=== PATIENT | female | born 1940 | race Caucasian/White ===

== ENCOUNTER 2017-07-23 15:01 | Outpatient (CLI) | payer MEDICARE ==
--- NOTE | 2017-07-24 09:12 | XRAY Report ---
THREE VIEW LEFT ANKLE: 07/23/2017 CLINICAL INDICATION: Pain. FINDINGS: AP, lateral, oblique views of the left ankle demonstrate no evidence of fracture or dislocation. The joint spaces are preserved. No effusion is present. IMPRESSION: NORMAL LEFT ANKLE. TD: 07/24/2017 08:53
--- NOTE | 2017-07-24 09:13 | XRAY Report ---
THREE VIEW LEFT FOOT: 07/23/2017 CLINICAL INDICATION: Pain. FINDINGS: AP, lateral, oblique views of the left foot demonstrate no evidence of fracture or dislocation. The joint spaces are preserved. No radiopaque foreign body is seen in the soft tissues. IMPRESSION: NORMAL LEFT FOOT. TD: 07/24/2017 08:54
== END 2017-07-23 15:02 | disposition home or self-care (01) ==
LOC: DI 15:01
PROVIDERS: ATTEND Nurse Practitioner Family
DX: M25.572 Pain in left ankle and joints of left foot (principal); M79.672 Pain in left foot

== ENCOUNTER 2017-10-29 11:14 | Outpatient (CLI) | payer MEDICARE ==
--- NOTE | 2017-10-29 14:54 | XRAY Report ---
Reason: LOW BACK PAIN, LEFT HIP PAIN Procedure Date: 10/29/2017 Accession Number: [id number] / [id number] Procedure: XR - Lumbar Spine 2 View CPT Code: FULL RESULT: EXAM: LUMBOSACRAL SPINE RADIOGRAPHY EXAM DATE: 10/29/2017 11:50 AM. CLINICAL HISTORY: Chronic low back pain with symptoms worsening over the last 10 days. COMPARISONS: None. TECHNIQUE: 3 views. FINDINGS: Alignment: Normal. No spondylolisthesis or scoliosis. Bones: Five ybn-[id number]-[id number] lumbar vertebral bodies are present with partial sacralization of L5. No fractures or bone lesions. Disks: Normal. Disk heights are maintained. Facets: Moderate facet arthropathy at L3 through L5. Sacroiliac Joints: Unremarkable. Soft Tissues: Abdominal aortic calcifications. IMPRESSION: Degenerative changes predominantly in the facet joints as described. RADIA
--- NOTE | 2017-10-29 14:54 | XRAY Report ---
Reason: LOW BACK PAIN, LEFT HIP PAIN Procedure Date: 10/29/2017 Accession Number: [id number] / [id number] Procedure: XR - Hip w/Pelvis 2-3V LT CPT Code: FULL RESULT: EXAM: LEFT HIP AND PELVIS RADIOGRAPHY EXAM DATE: 10/29/2017 11:50 AM. HISTORY: Chronic low back and left hip pain with symptoms worsening the last 10 days. COMPARISONS: None. TECHNIQUE: 1 view of the pelvis and 1 view of the hip. FINDINGS: Bones: Normal. No fracture or bone lesion. Joints: The pubis symphysis, and sacroiliac joints are preserved. There is mild narrowing of the bilateral femoroacetabular joint spaces. Soft Tissues: Normal. No soft tissue swelling. IMPRESSION: Mild narrowing of the femoroacetabular joint spaces. RADIA
== END 2017-10-29 11:15 | disposition home or self-care (01) ==
LOC: DI 11:14
PROVIDERS: ATTEND Nurse Practitioner Family
DX: M47.896 Other spondylosis, lumbar region (principal); M25.852 Other specified joint disorders, left hip; M25.851 Other specified joint disorders, right hip; M25.552 Pain in left hip
CPT/HCPCS: 72100

== ENCOUNTER 2018-05-27 13:26 | Outpatient (CLI) | payer MEDICARE ==
--- NOTE | 2018-05-27 15:08 | XRAY Report ---
Reason: TRAUMATIC ARTHROPATHY,LEFT SHOULDER Procedure Date: 05/27/2018 Accession Number: [id number] / [id number] Procedure: XR - Shoulder 3 View LT CPT Code: FULL RESULT: EXAM: LEFT SHOULDER RADIOGRAPHY EXAM DATE: 05/27/2018 02:05 PM. CLINICAL HISTORY: Traumatic arthropathy, left shoulder. COMPARISON: None. TECHNIQUE: 3 views. FINDINGS: Bones: Healed remote fracture of the surgical neck of the left humerus, post traumatic deformity. Joints: The glenohumeral and acromioclavicular joints are normally aligned with degenerative changes of the AC joint as well as osseous glenoid, predominately along the inferior rim. Soft tissues: The visualized hemithorax is unremarkable. No soft tissue swelling. IMPRESSION: Suspect remote fracture of the surgical neck of the left humerus as well as previous shoulder dislocation. RADIA
== END 2018-05-27 13:27 | disposition home or self-care (01) ==
LOC: DI 13:26
PROVIDERS: ATTEND Internal Medicine
DX: M12.512 Traumatic arthropathy, left shoulder (principal)

== ENCOUNTER 2018-07-04 10:24 | Emergency (ER) | payer MEDICARE ==
[2018-07-04 11:10] LABS: BASOPHILS # (AUTO) 0.1 10^3/uL (0.0-0.1); EOSINOPHILS # (AUTO) 0.3 10^3/uL (0.0-0.7); EOSINOPHILS % (AUTO) 4.5 %; LYMPHOCYTES # (AUTO) 1.8 10^3/uL (1.5-3.5); LYMPHOCYTES % (AUTO) 27.4 %; MEAN CORPUSCULAR HEMOGLOBIN 29.9 pg (27.0-31.0); MEAN CORPUSCULAR HGB CONC 33.3 g/dL (32.0-36.0); MEAN CORPUSCULAR VOLUME 89.8 fL (81.0-99.0); MEAN PLATELET VOLUME 7.7 fL (7.9-10.8); MONOCYTES # (AUTO) 0.5 10^3/uL (0.0-1.0); MONOCYTES % (AUTO) 7.3 %; NEUTROPHILS % (AUTO) 59.8 %; PLT - PLATELET COUNT 302 10^3/uL (130-450); RED BLOOD COUNT 4.68 10^6/uL (4.20-5.40); RED CELL DISTRIBUTION WIDTH 14.9 % (12.0-15.0); WHITE BLOOD COUNT 6.7 x10^3/uL (4.8-10.8)
[2018-07-04 11:28] LABS: ALBUMIN 3.6 g/dL (3.2-5.5); ALBUMIN/GLOBULIN RATIO 1.2 (1.0-2.2); BILIRUBIN,TOTAL 0.7 mg/dL (0.2-1.0); CALCIUM 8.8 mg/dL (8.5-10.3); CREATININE 0.8 mg/dL (0.4-1.0); TOTAL PROTEIN 6.6 g/dL (6.7-8.2)
--- NOTE | 2018-07-04 11:40 | XRAY Report ---
Reason: chest pain Procedure Date: 07/04/2018 Accession Number: [id number] / [id number] Procedure: XR - Chest 2 View X-Ray CPT Code: 26857 FULL RESULT: EXAM: CHEST RADIOGRAPHY EXAM DATE: 07/04/2018 11:26 AM. CLINICAL HISTORY: Chest pain COMPARISON: None. TECHNIQUE: 2 views. FINDINGS: Lungs/Pleura: Linear subsegmental atelectasis or scarring left CP angle. No focal opacities evident. No pleural effusion. No pneumothorax. Normal volumes. Mediastinum: Heart and mediastinal contours are unremarkable. Other: Minimal degenerative change in the spine. IMPRESSION: Clear lungs. No acute findings. RADIA
--- NOTE | 2018-07-04 11:43 | ED Physician Documentation ---
PD HPI CHEST PAIN - Stated complaint Stated Complaint: SENT BY DOC - Chief complaint Chief Complaint: Cardiac - History obtained from History obtained from: Patient - History of Present Illness Timing - onset: How many hours ago (7) Timing - onset during: Sleep Timing - duration: Minutes (30) Timing - details: Now resolved Radiation: Jaw, Back, Left upper extremity Similar symptoms before: Has not had sx before - Additional information Additional information: The patient is a 77-year-old female who had an episode of her heart pounding during the night, about 7 hours prior to arrival. She reports associated shooting pain in her left arm and tightness in her jaw, as well as pain in her right mid back. She denies any associated chest pain or tightness. Her symptoms lasted for about 1/2-hour before gradually resolving spontaneously. She had no associated shortness of breath, diaphoresis, nausea or vomiting. Her only symptom currently is a feeling of tiredness. She denies past history of similar symptoms. Review of Systems Constitutional: reports: Fatigue. denies: Fever Ears: denies: Tinnitus/ringing Nose: denies: Congestion Throat: denies: Sore throat Cardiac: reports: Palpitations. denies: Chest pain / pressure Respiratory: denies: Dyspnea, Cough GI: denies: Abdominal Pain, Nausea, Vomiting : denies: Dysuria Skin: denies: Rash Musculoskeletal: reports: Back pain (right mid back) Neurologic: denies: Focal weakness, Numbness, Headache PD PAST MEDICAL HISTORY - Past Medical History Cardiovascular: Hypertension Endocrine/Autoimmune: HyPOthyroidism GI: GERD - Past Surgical History Past Surgical History: Yes - Present Medications Home Medications: Ambulatory Orders Medication Instructions Recorded Confirmed Levothyroxine [Synthroid] 25 mcg PO QDAC 11/20/12 07/04/18 Lisinopril [Prinivil] 20 mg PO DAILY 11/20/12 07/04/18 Omeprazole [PriLOSEC] 20 mg PO DAILY 11/20/12 07/04/18 - Allergies Allergies/Adverse Reactions: Allergies Allergy/AdvReac Type Severity Reaction Status Date / Time Penicillins Allergy anaphylaxis Verified 07/04/18 10:36 Sulfa (Sulfonamide Allergy drowsiness Verified 07/04/18 10:36 Antibiotics) - Social History Does the pt smoke?: No Smoking Status: Never smoker Does the pt drink ETOH?: No Does the pt have substance abuse?: No - Immunizations Immunizations are current?: Yes Immunizations: TDAP >10years/unknown - POLST Patient has POLST: No PD ED PE NORMAL - Vitals Vital signs reviewed: Yes (hypertensive) - General General: Alert and oriented X 3, Well developed/nourished - HEENT HEENT: Atraumatic, EOMI, Moist mucous membranes, Pharynx benign - Neck Neck: Supple, no meningeal sign, No adenopathy, No JVD - Cardiac Cardiac: RRR, No murmur - Respiratory Respiratory: No respiratory distress, Clear bilaterally - Abdomen Abdomen: Soft, Non tender - Back Back: No CVA TTP, No spinal TTP, Other (Mild tenderness to palpation at inferior aspect of right scapula.) - Derm Derm: No rash - Extremities Extremities: No edema, No calf tenderness / cord - Neuro Neuro: Alert and oriented X 3, No motor deficit, No sensory deficit Results - Vitals Vitals: Vital Signs - 24 hr 07/04/18 07/04/18 10:31 10:38 Temperature 36.1 C L Heart Rate 62 61 Respiratory 18 10 L Rate Blood Pressure 189/98 H 172/95 H O2 Saturation 100 100 Oxygen O2 Source Room air - EKG (time done) 10:33 Rate: Rate (enter#) (57) Rhythm: NSR [place]: Normal, LAD (borderline) Intervals: Normal OK QRS: Normal Ischemia: Normal ST segments Computer interpretation: Agree with computer - Labs Labs: Laboratory Tests 07/04/18 07/04/18 07/04/18 11:03 11:03 11:10 WBC 6.7 RBC 4.68 Hgb 14.0 Hct 42.0 MCV 89.8 MCH 29.9 MCHC 33.3 RDW 14.9 Plt Count 302 MPV 7.7 L Neut # (Auto) 4.0 Lymph # (Auto) 1.8 [place] # (Auto) 0.5 Eos # (Auto) 0.3 Baso # (Auto) 0.1 Absolute Nucleated RBC 0.00 Nucleated RBC % 0.0 Sodium 138 Potassium 4.1 Chloride 103 Carbon Dioxide 25 Anion Gap 10.0 BUN 20 Creatinine 0.8 Estimated GFR (MDRD) 69 L Glucose 112 H Calcium 8.8 Total Bilirubin 0.7 AST 22 ALT 22 Alkaline Phosphatase 75 Troponin I < 0.04 Total Protein 6.6 L Albumin 3.6 Globulin 3.0 Albumin/Globulin Ratio 1.2 Lipase 22 - Rads (name of study) Portable CXR Radiology: Prelim report reviewed, EMP read contemporaneously, See rad report (Clear lungs, no acute findings.) PD MEDICAL DECISION MAKING - ED course Complexity details: reviewed old records, reviewed results, re-evaluated patient, considered differential, d/w patient, d/w family ED course: The patient's presentation is most likely associated with lower esophageal inflammation, given her history of gastroesophageal reflux. In addition she has started a new exercise regimen as of 2 days ago, and may have had a spasm causing her pain. Cardiac ischemia was considered, but her EKG and cardiac enzymes are normal. I would expect that several hours after the onset of her pain that troponin would be elevated if she had an acute myocardial infarct. Given her age and her family history it would be prudent to arrange for outpatient cardiac treadmill test, but that does not need to be pursued emergently. I discussed with the patient and her the diagnosis, need for outpatient follow-up, as well as potentially worrisome signs or symptoms that should prompt reevaluation in the emergency department Departure - Departure Disposition: 01 Home, Self Care Clinical Impression: Atypical chest pain Condition: Stable Instructions: ED Chest Pain Atypical Unkn Cause Follow-Up: Jcarlos Ly MD [Physician No Access] - TA LY MD [Primary Care Provider] - Comments: Follow-up with your primary physician within 1 to 2 weeks. Call to schedule appointment. Return to the emergency department if you develop recurrent or increasing chest pain, shortness of breath, or otherwise worsening symptoms.
[2018-07-04 13:26] VITALS: BP 139/118
== END 2018-07-04 12:50 | disposition home or self-care (01) ==
LOC: ED 10:24
DX: R07.89 Other chest pain (principal); R00.2 Palpitations; K21.9 Gastro-esophageal reflux disease without esophagitis; I10 Essential (primary) hypertension; E03.9 Hypothyroidism, unspecified
CPT/HCPCS: 36415; 71046; 80053; 83690; 84484; 85025; 93005; 99283; 99284

== ENCOUNTER 2018-07-15 15:49 | Outpatient (CLI) | payer MEDICARE ==
--- NOTE | 2018-07-15 17:01 | XRAY Report ---
Reason: HYPOTHYROIDISM,PAIN IN THORACIC SPINE, CERVICALGIA Procedure Date: 07/15/2018 Accession Number: [id number] / [id number] Procedure: XR - Thoracic Spine 2 View CPT Code: FULL RESULT: EXAM: THORACIC SPINE RADIOGRAPHY EXAM DATE: 07/15/2018 04:18 PM. CLINICAL HISTORY: Hypothyroidism, pain in thoracic spine, cervicalgia. COMPARISON: CHEST 2 VIEW 07/04/2018 11:00 AM CERVICAL SPINE 2 VIEW 07/15/2018 4:02 PM. TECHNIQUE: 2 views. FINDINGS: Alignment: Normal. No spondylolisthesis or scoliosis. Bones: No fractures or bone lesions. Disks: Normal. Disk heights are maintained. Soft Tissues: Normal. The visualized lungs and cardiomediastinal silhouette are normal. IMPRESSION: Normal thoracic spine radiography. RADIA
--- NOTE | 2018-07-15 17:02 | XRAY Report ---
Reason: CERVICAL PAIN Procedure Date: 07/15/2018 Accession Number: [id number] / [id number] Procedure: XR - Cervical Spine 2 View CPT Code: FULL RESULT: EXAM: CERVICAL SPINE RADIOGRAPHY EXAM DATE: 07/15/2018 04:18 PM. CLINICAL HISTORY: Cervical pain. COMPARISONS: None. TECHNIQUE: 3 views. FINDINGS: Alignment: Normal. No spondylolisthesis or scoliosis. Bones: The cervical vertebral bodies and posterior elements are well visualized from the skull base through C7-T1. No fractures or bone lesions. Disks: Normal. Disk heights are maintained. Facets: No degenerative disease. Soft Tissues: Normal. No prevertebral soft tissue swelling. The visualized lung apices are clear. IMPRESSION: Normal cervical spine radiography. RADIA
--- NOTE | 2018-07-15 17:02 | Ultrasound Report ---
Reason: HYPOTHYROIDISM,PAIN IN THORACIC SPINE, CERVICALGIA Procedure Date: 07/15/2018 Accession Number: [id number] / [id number] Procedure: US - Head or Neck Soft Tissue CPT Code: FULL RESULT: EXAM: THYROID ULTRASOUND EXAM DATE: 07/15/2018 04:37 PM. CLINICAL HISTORY: Hypothyroidism,pain in thoracic spine, cervicalgia. COMPARISON: None. TECHNIQUE: Real time sonographic imaging of the thyroid was performed by the scientific systems analyst. Multiple medical service representative static images were saved for review. FINDINGS: THYROID GLAND: Right Lobe: 1 x 0.3 x 0.4 cm. Heterogeneous/atrophic. Right Lobe Nodules: None. Left Lobe: 1.4 x 0.5 x 0.6 cm. Heterogeneous/atrophic. Left Lobe Nodules: None. Isthmus: 0.16 cm AP. Isthmic Nodules: None. LYMPH NODES: No adenopathy demonstrated in the central or lateral compartment. OTHER: None. IMPRESSION: Significant atrophy of the thyroid parenchyma; no appreciable nodules. Management recommendations are based on 2015 [place] [employer] Management Guidelines for Adult Patients with Thyroid Nodules and Differentiated Thyroid Cancer. RADIA
== END 2018-07-15 15:50 | disposition home or self-care (01) ==
LOC: DI 15:49
PROVIDERS: ATTEND Internal Medicine
DX: E03.9 Hypothyroidism, unspecified (principal); E03.4 Atrophy of thyroid (acquired); M54.6 Pain in thoracic spine; M54.2 Cervicalgia
CPT/HCPCS: 72040; 72070; 76536

== ENCOUNTER 2018-07-29 14:54 | Outpatient (CLI) | payer MEDICARE ==
--- NOTE | 2018-07-30 12:19 | MRI Report ---
Reason: PAIN IN LEFT SHOULDER Procedure Date: 07/29/2018 Accession Number: [id number] / [id number] Procedure: MRI - Shoulder LT W/O CPT Code: FULL RESULT: EXAM: LEFT SHOULDER MRI WITHOUT CONTRAST EXAM DATE: 07/29/2018 03:11 PM. CLINICAL HISTORY: Left shoulder pain. Tripped by a dog several months ago. Left arm numbness. COMPARISON: 05/27/2018 radiograph. TECHNIQUE: Multiplanar, multisequence T1-weighted and fluid-sensitive sequences of the shoulder without contrast. Other: None. FINDINGS: Acromioclavicular Region: The acromion is type I. The acromioclavicular joint is unremarkable. The coracoacromial and coracoclavicular ligaments are intact. A minimal amount of fluid is in the subacromial/subdeltoid bursa. Glenohumeral Region: No subluxation. No effusion or loose bodies. The articular cartilage of the inferior glenohumeral joint is moderately to severely thinned. Trace osteophyte formation is present. The glenohumeral ligaments and joint capsule are unremarkable. Bone Marrow: No acute fractures. The patient has had a transverse fracture of the surgical neck of the humerus and that fracture has healed. Periarticular cyst formation is in the glenoid. Labrum: The labrum is unremarkable on this nonarthrographic study. Musculature/Rotator Cuff: The subscapularis, supraspinatus, infraspinatus, and teres minor tendons are intact. No muscle edema. There is mild fatty atrophy of the subscapularis muscle. Biceps Tendon: The long head of the biceps tendon and biceps lisa are intact. Other: The subcutaneous tissues are unremarkable. IMPRESSION: 1. Minimal subacromial/subdeltoid bursitis. 2. Minimal glenohumeral osteoarthritis. 3. Old healed fracture of the proximal humerus. RADIA
== END 2018-07-29 14:55 | disposition home or self-care (01) ==
LOC: DI 14:54
PROVIDERS: ATTEND Orthopaedic Surgery Sports Medicine
DX: M75.52 Bursitis of left shoulder (principal); M19.012 Primary osteoarthritis, left shoulder

== ENCOUNTER 2018-08-26 14:00 | Outpatient (CLI) | payer MEDICARE ==
--- NOTE | 2018-08-26 15:15 | XRAY Report ---
Reason: PAIN IN LEFT SHOULDER,PLEURODYNIA Procedure Date: 08/26/2018 Accession Number: [id number] / [id number] Procedure: XR - Ribs w/PA Chest LT CPT Code: FULL RESULT: EXAM: LEFT RIB RADIOGRAPHY EXAM DATE: 08/26/2018 02:37 PM. CLINICAL HISTORY: Pain in left shoulder, pleurodynia. COMPARISON: THORACIC SPINE 2 VIEW 07/15/2018 4:02 PM. TECHNIQUE: 1 view of the chest and 2 views of the ribs. FINDINGS: Bones: The bones are qualitatively osteopenic; this limits evaluation for underlying fractures or masses. No definite displaced fracture is seen. Lungs: A small linear opacity is seen at the lateral left lung base, atelectasis versus scarring suspected. No sizable pleural effusion or pneumothorax. Mediastinum: Heart and mediastinal contours are unremarkable. Other: None. IMPRESSION: No definite displaced rib fracture is detected. RADIA
--- NOTE | 2018-08-26 15:20 | XRAY Report ---
Reason: PAIN IN LEFT SHOULDER,PLEURODYNIA Procedure Date: 08/26/2018 Accession Number: [id number] / [id number] Procedure: XR - Shoulder 3 View LT CPT Code: FULL RESULT: EXAM: LEFT SHOULDER RADIOGRAPHY EXAM DATE: 08/26/2018 02:37 PM. CLINICAL HISTORY: Ground level fall after "flying off treadmill" one week ago. Left shoulder pain. COMPARISON: SHOULDER 3 VIEW LT 05/27/2018 1:52 PM SHOULDER LT W/O 07/29/2018 3:11 PM. TECHNIQUE: 3 views. FINDINGS: Deformity of the head of the left humerus is redemonstrated, unchanged compared to May. The humeral head is anteriorly and inferiorly subluxed with relation to the osseous glenoid. Positioning is similar to May, but osseous irregularity of the inferior glenoid is now more pronounced. The visualized acromioclavicular joint is preserved. Soft tissues: The visualized hemithorax is unremarkable. No soft tissue swelling. IMPRESSION: Partial subluxation of the glenohumeral articulation in the setting of chronic deformity of the humeral head, apparent irregularity of the inferior osseous glenoid. Of note, at the time of the recent MRI, the glenohumeral alignment is preserved and the osseous glenoid is demonstrated to be relatively intact raising question of interval injury. RADIA The call report notification system was initiated by Dr. Destin Dhillon at 03:12 PM on 08/26/2018. The above call report findings were discussed with Jocelyn Jauregui by Dr. Destin Dhillon at 03:15 PM on 08/26/2018.
== END 2018-08-26 14:01 | disposition home or self-care (01) ==
LOC: DI 14:00
PROVIDERS: ATTEND Nurse Practitioner Family
DX: S43.012A Anterior subluxation of left humerus, initial encounter (principal); M21.822 Other specified acquired deformities of left upper arm; R07.81 Pleurodynia

== ENCOUNTER 2019-10-31 08:00 | Outpatient (CLI) | payer MEDICARE ==
--- NOTE | 2019-10-31 13:08 | XRAY Report ---
PROCEDURE: Chest 2 View X-Ray INDICATIONS: CHEST PAIN, RIGHT TECHNIQUE: 2 view(s) of the chest. COMPARISON: 08/26/2018. FINDINGS: Surgical changes and devices: None. Lungs and pleura: No pleural effusions or pneumothorax. Minimal left basilar atelectasis versus scar ring. Lungs are otherwise clear. Mediastinum: Mediastinal contours are normal. Heart size is normal. Bones and chest wall: No suspicious bony abnormalities. Soft tissues appear unremarkable. IMPRESSION: Chest without acute cardiopulmonary abnormalities. No definite rib fractures visualized. Consider dedicated rib series if there is persistent clinical concern. Reviewed by: Terell Dan MD on 10/31/2019 1:07 PM PDT Approved by: Terell Dan MD on 10/31/2019 1:07 PM PDT Station ID: [id number]
--- NOTE | 2019-10-31 13:10 | XRAY Report ---
PROCEDURE: Shoulder 2 View RT INDICATIONS: PAIN IN RIGHT SHOULDER TECHNIQUE: 3 views of the shoulder were acquired. COMPARISON: None. FINDINGS: Bones: No fractures or dislocations. Mild degenerative changes of the right acromioclavicular joint . No suspicious bony lesions. Visualized ribs appear intact. Soft tissues: No suspicious soft tissue calcifications. IMPRESSION: Right shoulder without acute fracture or dislocation. Mild right acromioclavicular osteoarthrosis. Reviewed by: Terell Dan MD on 10/31/2019 1:08 PM PDT Approved by: Terell Dan MD on 10/31/2019 1:08 PM PDT Station ID: [id number]
== END 2019-10-31 23:59 | disposition home or self-care (01) ==
LOC: DI.S 08:00
PROVIDERS: ATTEND Physician Assistant
DX: R07.89 Other chest pain (principal); M25.511 Pain in right shoulder
CPT/HCPCS: 71046

== ENCOUNTER 2019-10-31 13:30 | Emergency (ER) | payer MEDICARE ==
[2019-10-31 13:46] VITALS: BP 154/76
[2019-10-31] MEDS ORDERED: traMADol 50 MG TABLET PO STA (13:55)
--- NOTE | 2019-10-31 13:59 | ED Physician Documentation ---
History of Present Illness - Stated complaint Stated Complaint: GLF -RT SIDE PX - Chief complaint Chief Complaint: Trauma Ch/Bk - History obtained from History obtained from: Patient - History of Present Illness Timing: How many days ago (4) Pain level max: 6 Pain level now: 5 - Additonal information Additional information: 79-year-old female presents the emergency department after a ground-level fall on her concrete driveway 4 days ago. She complains of increasing pain over the right anterior ribs. Worse with movement, better with rest. No abdominal pain. No nausea or vomiting. No neck or back pain. No head injury. Does not take any blood thinners. States feels similar to her prior cracked rib. She was seen at the walk-in clinic this morning, they performed a chest x-ray and a shoulder x-ray which were normal. A rib series was recommended if concern for rib fractures. Apparently the provider at the walk-in clinic was concerned for a potential liver injury and sent the patient to the emergency department for further evaluation. Review of Systems Constitutional: denies: Fever, Chills Respiratory: denies: Cough GI: denies: Vomiting, Diarrhea Skin: denies: Rash Musculoskeletal: denies: Neck pain, Back pain Neurologic: denies: Headache PD PAST MEDICAL HISTORY - Past Medical History Past Medical History: Yes Cardiovascular: Hypertension Endocrine/Autoimmune: HyPOthyroidism GI: GERD - Past Surgical History Past Surgical History: Yes - Present Medications Home Medications: Ambulatory Orders Medication Instructions Recorded Confirmed Levothyroxine [Synthroid] 25 mcg PO QDAC 11/20/12 07/04/18 Lisinopril [Prinivil] 20 mg PO DAILY 11/20/12 07/04/18 Omeprazole [PriLOSEC] 20 mg PO DAILY 11/20/12 07/04/18 Tramadol HCl 50 mg PO Q6HR PRN #14 tablet 10/31/19 - Allergies Allergies/Adverse Reactions: Allergies Allergy/AdvReac Type Severity Reaction Status Date / Time Penicillins Allergy anaphylaxis Verified 10/31/19 13:45 Sulfa (Sulfonamide Allergy drowsiness Verified 10/31/19 13:45 Antibiotics) - Social History Does the pt smoke?: No Smoking Status: Never smoker Does the pt drink ETOH?: No Does the pt have substance abuse?: No - Immunizations Immunizations are current?: Yes Immunizations: TDAP >10years/unknown - POLST Patient has POLST: No PD ED PE NORMAL - Vitals Vital signs reviewed: Yes - General General: Alert and oriented X 3, No acute distress, Well developed/nourished - HEENT HEENT: Atraumatic, PERRL, EOMI, Moist mucous membranes - Neck Neck: Supple, no meningeal sign, No bony TTP (No step-off or deformity. No tenderness. Full range of motion without pain) - Cardiac Cardiac: RRR - Respiratory Respiratory: No respiratory distress, Clear bilaterally - Abdomen Abdomen: Soft, Non tender, Non distended, Other (No peritoneal signs. Nontender abdomen. Benign exam) - Back Back: No spinal TTP (No step-off or deformity.) - Derm Derm: Warm and dry - Extremities Extremities: No deformity, No tenderness to palpate, Normal ROM s pain, No edema, Other (No tenderness over the shoulders, full range of motion, mild pain with range of motion of the right shoulder. Neurovascular intact.) - Neuro Neuro: Alert and oriented X 3 - Psych Psych: Normal mood, Normal affect - Free text exam Free text exam: Tender to palpation over the right anterior ribs, approximately 7 and 8. No crepitus. No ecchymosis. Anterior axillary line. Otherwise normal examination of the rib cage Results - Vitals Vitals: Vital Signs - 24 hr 10/31/19 13:40 Temperature 36.4 C L Heart Rate 66 Respiratory 18 Rate Blood Pressure 154/76 H O2 Saturation 100 Oxygen O2 Source Room air - Rads (name of study) rib x-ray Radiology: Prelim report reviewed, EMP read contemporaneously, See rad report (Acute right rib fracture, 11th rib. Otherwise normal x-ray) PD MEDICAL DECISION MAKING - ED course Complexity details: reviewed results, re-evaluated patient, considered differential, d/w patient ED course: Patient with a right rib fracture. Will place on pain medication for home. She states that tramadol normally works well for her. Patient is well-appearing, nontoxic. Afebrile. No hemo-or pneumothorax. Patient counseled regarding signs and symptoms for which I believe and urgent re-evaluation would be necessary. Patient with good understanding of and agreement to plan and is comfortable going home at this time This document was made in part using voice recognition software. While efforts are made to proofread this document, sound alike and grammatical errors may occur. No abdominal tenderness or tenderness over the liver to suggest intra-abdominal injury. Departure - Departure Disposition: 01 Home, Self Care Clinical Impression: Fracture, rib Qualifiers: Encounter type: initial encounter Rib fracture type: single rib Fracture type: closed Laterality: right Qualified Code(s): S22.31XA - Fracture of one rib, right side, initial encounter for closed fracture Condition: Good Instructions: ED Fx Rib Follow-Up: NEAL RICHMOND ARNP [Primary Care Provider] - Within 1 week Prescriptions: Tramadol HCl 50 mg PO Q6HR PRN #14 tablet PRN Reason: rib pain Comments: You do have a right 11th rib fracture. This will heal on its own. You can use the tramadol as needed for pain. Do not drink alcohol or drive while on narcotic pain medicine. Note that many narcotic pain relievers also contain tylenol/acetaminophen. Please ensure that your total dose of acetaminophen from all sources does not exceed 3 grams (3000mg) per day. You may constipated on this medication, take a stool softener such as "Colace" twice a day while you are on it. Also recommend a [id number]-[id number] laxative such as senna or MiraLAX any day that you do not have a bowel movement. If you received narcotic pain medication in the emergency department, do not drive or operate machinery for the next 24 hours. Discharge Date/Time: 10/31/19 15:25
--- NOTE | 2019-10-31 15:05 | XRAY Report ---
PROCEDURE: Ribs 2 View RT INDICATIONS: RT RIB PAIN AFTER FALL TECHNIQUE: 3 views of the right ribs were acquired. COMPARISON: Chest radiograph from earlier same day FINDINGS: Surgical changes and devices: None. Bones and chest wall: Acute, mildly displaced lateral right 11th rib fracture. No suspicious bony le sions. Overlying soft tissues appear unremarkable. Lungs and pleura: The visualized lung appears clear. No pleural effusions or pneumothorax are visib le. IMPRESSION: Acute, mildly displaced lateral right 11th rib fracture. No pneumothorax visualized. Reviewed by: Terell Dan MD on 10/31/2019 3:04 PM PDT Approved by: Terell Dan MD on 10/31/2019 3:04 PM PDT Station ID: [id number]
== END 2019-10-31 15:25 | disposition home or self-care (01) ==
LOC: ED 13:30
DX: I10 Essential (primary) hypertension (principal); S22.31XA Fracture of one rib, right side, initial encounter for closed fracture; W01.198A Fall on same level from slipping, tripping and stumbling with subsequent striking against other object, initial encounter; Y92.008 Other place in unspecified non-institutional (private) residence as the place of occurrence of the external cause; R07.89 Other chest pain; M25.511 Pain in right shoulder
CPT/HCPCS: 71046; 71100; 73030; 99283; 99284; A9270

== ENCOUNTER 2020-06-25 08:00 | Outpatient (CLI) | payer MEDICARE ==
--- NOTE | 2020-06-25 14:33 | XRAY Report ---
PROCEDURE: Knee 3 View RT INDICATIONS: RIGHT KNEE PAIN TECHNIQUE: 3 views of the right knee(s) were acquired. COMPARISON: None. FINDINGS: Bones: No fractures or dislocations. Mild degenerative change. No suspicious bony lesions. Soft tissues: No joint effusion. No suspicious soft tissue calcifications. IMPRESSION: Mild degenerative arthritis. No evidence acute bony abnormality of the right knee. Reviewed by: David Rodríguez MD on 06/25/2020 2:32 PM PDT Approved by: David Rodríguez MD on 06/25/2020 2:32 PM PDT Station ID: [id number]
== END 2020-06-25 23:59 | disposition home or self-care (01) ==
LOC: DI.S 08:00
PROVIDERS: ATTEND Physician Assistant Medical
DX: M17.11 Unilateral primary osteoarthritis, right knee (principal)

== ENCOUNTER 2020-11-10 12:15 | Outpatient (CLI) | payer MEDICARE ==
--- NOTE | 2020-11-10 13:48 | XRAY Report ---
PROCEDURE: Knee 3 View RT INDICATIONS: PAIN IN RIGHT KNEE TECHNIQUE: 3 views of the right knee(s) were acquired. COMPARISON: None. FINDINGS: Bones: No fractures or dislocations. No suspicious bony lesions. Mild to moderate tricompartmental osteoarthritis is seen more prominent in medial femoral tibial compartment. Soft tissues: No joint effusion. No suspicious soft tissue calcifications. IMPRESSION: Mild to moderate tricompartmental osteoarthritis more prominent in medial femoral tibial compartment. No fracture or dislocation. No significant joint effusion. Reviewed by: Abel Aaron MD on 11/10/2020 1:47 PM PDT Approved by: Abel Aaron MD on 11/10/2020 1:47 PM PDT Station ID: [id number]
== END 2020-11-10 12:16 | disposition home or self-care (01) ==
LOC: DI.S 12:15
PROVIDERS: ATTEND Nurse Practitioner Family
DX: M17.11 Unilateral primary osteoarthritis, right knee (principal)

== ENCOUNTER 2020-12-25 08:00 | Outpatient (CLI) | payer MEDICARE ==
--- NOTE | 2020-12-25 15:26 | XRAY Report ---
PROCEDURE: Lumbar Spine 2 View INDICATIONS: LUMBAR BACK PAIN TECHNIQUE: 3 views of the lumbar spine were acquired. COMPARISON: 10/21/2017 FINDINGS: Bones: This patient has transitional anatomy. For the purposes of this examination, the level with t iny vestigial ribs is considered to be T12. By this summary scheme, the L5 level is transitional and highly sacralized. There is a transitional, rudimentary disc seen at the S1-S2 level. This imaging sc heme is chosen to remain consistent with the prior report. There is minimal grade 1 anterolisthesis seen at L5-S1. Moderate disc space narrowing is seen at L5-S 1. Facet arthropathy is seen, which is most prominent inferiorly. No fractures or dislocations can be seen. No suspicious lytic or blastic lesions are seen. Soft tissues: Overlying bowel gas pattern is normal. No suspicious soft tissue calcifications. Ath erosclerotic calcification is seen. IMPRESSION: Focal L5-S1 degenerative change is seen, which has progressed compared to 2018. 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 Reviewed by: Clark Figuerao MD on 12/25/2020 2:25 PM [facility] Approved by: Clark Figueroa MD on 12/25/2020 2:25 PM [facility] Station ID: [id number]
== END 2020-12-25 23:59 | disposition home or self-care (01) ==
LOC: DI.S 08:00
PROVIDERS: ATTEND Family Medicine
DX: M47.817 Spondylosis without myelopathy or radiculopathy, lumbosacral region (principal)

== ENCOUNTER 2021-06-12 18:36 | Outpatient (CLI) | payer MEDICARE ==
--- NOTE | 2021-06-14 11:22 | Ultrasound Report ---
PROCEDURE: Retroperitoneal INDICATIONS: CHRONIC KIDENY DISEASE TECHNIQUE: Real-time scanning was performed of the retroperitoneal organs, with image documentation. COMPARISON: CT abdomen and pelvis, 03/28/2009. Ultrasound pelvis, 03/28/2009. FINDINGS: Kidneys: Kidneys are normal in size. Right kidney measures 9.1 cm long; left kidney measures 9.6 cm long. Right renal cortical thickness is 1.1 cm; left renal cortical thickness is 1.4 cm. There is moderate left hydronephrosis. No right hydronephrosis. Suspect a sub 5 mm cyst in the superior pole r ight kidney. No solid masses, hydronephrosis, or nephrolithiasis. Bladder: Pre-void bladder volume is 293 mL. Post-void residual is 9.6 mL. Pre-void images demonstr ate no intraluminal masses or stones. On pre-void images, right ureteral jet is noted with color Dop pler interrogation. (Of note, ureteral jets may not be detectable in up to 25% of cases due to insuf ficient differences in specific gravity between ureteral and bladder urine). Miscellaneous: No free abdominal fluid. There is a large multilocular cystic mass in the right adne xa. IMPRESSION: 1. Moderate left hydronephrosis is present. A obstructive stone or mass is not identified. Recommend CT IVP for follow-up evaluation. 2. There is a large multilocular cystic mass in the right adnexa. Differential diagnoses include ami gn versus malignant cystic ovarian neoplasms. Recommend pelvic ultrasound for follow-up evaluation. Reviewed by: Jaden Contreras MD on 06/14/2021 11:21 AM PDT Approved by: Jaden Contreras MD on 06/14/2021 11:21 AM PDT Station ID: [id number]
== END 2021-06-12 18:37 | disposition home or self-care (01) ==
LOC: DI 18:36
PROVIDERS: ATTEND Nurse Practitioner Family
DX: N13.30 Unspecified hydronephrosis (principal); N94.89 Other specified conditions associated with female genital organs and menstrual cycle; N18.9 Chronic kidney disease, unspecified

== ENCOUNTER 2021-06-21 09:36 | Outpatient (CLI) | payer MEDICARE | END 2021-06-21 09:37 | disposition short-term general hospital (02) | LOC: EMS 09:36 | DX: R41.0 Disorientation, unspecified (principal); R45.1 Restlessness and agitation | CPT/HCPCS: A0425; A0429 ==

== ENCOUNTER 2021-08-02 10:52 | Outpatient (CLI) | payer MEDICARE ==
--- NOTE | 2021-08-02 15:02 | Ultrasound Report ---
PROCEDURE: Pelvic w/Transvaginal INDICATIONS: MASS OF RIGHT OVARY TECHNIQUE: Real-time scanning was performed of the pelvic organs, with image documentation. Additional endovagi nal scanning was necessary due to incomplete visualization of the adnexal and endometrial structures by transabdominal scanning. COMPARISON: Renal ultrasound 06/12/2021.. FINDINGS: Limited scanning through the kidneys shows no hydronephrosis. No pathologic free abdominal or pelvic fluid. Uterus: Uterus is normal in size at 6.8 x 2.9 x 3.6 cm. The endometrium measures 1.8 mm in combined thickness. There is a 1.5 x 1.2 x 1.4 cm calcified intramural fibroid in the left mid uterus. Ovaries: Right ovary measures 9.2 x 8.5 x 9.5 cm with total volume of 390.5 cc. Right ovary is compl etely replaced by a large mixed cystic/solid multiseptated mass. Echogenic debris is noted within the cystic pontine of the right ovarian mass. Left ovary measures 2.2 x 1.5 x 1.3 cm the total volume of 2.3 cc. Left ovary is sonographically normal. Other: No free pelvic fluid. IMPRESSION: 9.2 x 8.5 x 9.5 cm complex cystic-solid right ovarian mass highly suspicious for neoplastic process. Recommend gynecologic consultation and MRI of the pelvis with and without contrast for additional alex luation. Reviewed by: Phuong Sanders MD, PhD on 08/02/2021 3:00 PM PDT Approved by: Phuong Sanders MD, PhD on 08/02/2021 3:00 PM PDT Station ID: [id number]
== END 2021-08-02 10:53 | disposition home or self-care (01) ==
LOC: DI 10:52
PROVIDERS: ATTEND Nurse Practitioner Family
DX: N83.9 Noninflammatory disorder of ovary, fallopian tube and broad ligament, unspecified (principal)

== ENCOUNTER 2021-08-14 13:47 | Outpatient (CLI) | payer MEDICARE ==
[2021-08-14 20:18] LABS: BASOPHILS # (AUTO) 0.1 10^3/uL (0.0-0.1); BASOPHILS % (AUTO) 0.8 %; EOSINOPHILS # (AUTO) 0.3 10^3/uL (0.0-0.7); EOSINOPHILS % (AUTO) 3.6 %; HCT - HEMATOCRIT 39.4 % (37.0-47.0); HGB - HEMOGLOBIN 12.5 g/dL (12.0-16.0); LYMPHOCYTES # (AUTO) 2.3 10^3/uL (1.5-3.5); LYMPHOCYTES % (AUTO) 26.3 %; MEAN CORPUSCULAR HGB CONC 31.7 g/dL (32.0-36.0); MEAN CORPUSCULAR VOLUME 97.8 fL (81.0-99.0); MEAN PLATELET VOLUME 10.2 fL (7.9-10.8); MONOCYTES # (AUTO) 0.7 10^3/uL (0.0-1.0); MONOCYTES % (AUTO) 7.8 %; NEUTROPHILS # (AUTO) 5.3 10^3/uL (1.5-6.6); NEUTROPHILS % (AUTO) 61.2 %; PLT - PLATELET COUNT 343 10^3/uL (130-450); RED BLOOD COUNT 4.03 10^6/uL (4.20-5.40); RED CELL DISTRIBUTION WIDTH 14.4 % (12.0-15.0); WHITE BLOOD COUNT 8.7 x10^3/uL (4.8-10.8)
[2021-08-14 20:36] LABS: ALBUMIN/GLOBULIN RATIO 1.2 (1.0-2.2); ALKALINE PHOSPHATASE 51 IU/L (42-121); ALT ALANINE AMINOTRANSFERASE 26 IU/L (10-60); AST ASPARTATE AMINOTRANSFERASE 25 IU/L (10-42); BILIRUBIN,TOTAL 0.8 mg/dL (0.2-1.0); BUN - BLOOD UREA NITROGEN 19 mg/dL (6-20); CALCIUM 9.4 mg/dL (8.5-10.3); CARBON DIOXIDE - CO2 26 mmol/L (21-32); CHLORIDE 104 mmol/L (101-111); CHOL/HDL RATIO 5.9 (<4.4); CHOLESTEROL 246 mg/dL; CREATININE 1.1 mg/dL (0.4-1.0); GFR - MDRD 47 (>89); GLUCOSE 97 mg/dL (70-100); HDL CHOLESTEROL 42 mg/dL; LDL CHOLESTEROL,CALCULATED 159 mg/dL; LDL/HDL RATIO 3.8 (<4.4); POTASSIUM 4.4 mmol/L (3.5-5.0); SODIUM 139 mmol/L (135-145); TOTAL PROTEIN 7.3 g/dL (6.7-8.2); TRIGLYCERIDES 226 mg/dL; VLDL CHOLESTEROL 45 mg/dL
== END 2021-08-14 13:48 | disposition home or self-care (01) ==
LOC: LAB.S 13:47
PROVIDERS: ATTEND Nurse Practitioner Family
DX: E78.5 Hyperlipidemia, unspecified (principal); I10 Essential (primary) hypertension
CPT/HCPCS: 36415; 80053; 80061; 83721; 85025

== ENCOUNTER 2021-08-28 13:54 | Outpatient (CLI) | payer MEDICARE ==
[2021-08-28 19:56] LABS: ALBUMIN/GLOBULIN RATIO 1.3 (1.0-2.2); BILIRUBIN,TOTAL 0.6 mg/dL (0.2-1.0); CALCIUM 9.2 mg/dL (8.5-10.3); CREATININE 1.2 mg/dL (0.4-1.0); POTASSIUM 4.3 mmol/L (3.5-5.0); TOTAL PROTEIN 7.1 g/dL (6.7-8.2)
== END 2021-08-28 13:55 | disposition home or self-care (01) ==
LOC: LAB.S 13:54
PROVIDERS: ATTEND Nurse Practitioner Family
DX: N83.291 Other ovarian cyst, right side (principal)
CPT/HCPCS: 36415; 80053

== ENCOUNTER 2023-01-08 19:48 | Outpatient (CLI) | payer MEDICARE | END 2023-01-08 23:59 | disposition short-term general hospital (02) | LOC: EMS 19:48 | DX: I46.9 Cardiac arrest, cause unspecified (principal) | CPT/HCPCS: A0425; A0427 ==

== ENCOUNTER 2023-04-26 13:22 | Outpatient (CLI) | payer MEDICARE ==
--- NOTE | 2023-04-26 15:17 | XRAY Report ---
PROCEDURE: Knee 3V RT INDICATIONS: ACCIDENTAL FALL TECHNIQUE: 3 views of the knee(s) were acquired. COMPARISON: Right knee radiograph on November 10, 2020. FINDINGS: Bones: Right total knee arthroplasty hardware with patellar resurfacing is intact with no perihardwa re lucency to suggest hardware loosening. Anatomic alignment. No fractures or dislocations. No suspi cious bony lesions. Diffuse osseous demineralization. Soft tissues: No knee joint effusion. No suspicious soft tissue calcifications or masses. Vascular calcifications. IMPRESSION: 1.No acute bony abnormality. If there is high clinical suspicion for a radiographically occult fractu re, consider CT for further evaluation. 2.Right total knee arthroplasty hardware is intact without complication. Anatomic alignment. Reviewed by: Tasha Saldaña MD on 04/26/2023 3:16 PM PST Approved by: Tasha Saldaña MD on 04/26/2023 3:16 PM PST Station ID: [id number]
--- NOTE | 2023-04-26 15:18 | XRAY Report ---
PROCEDURE: Shoulder 2+V RT INDICATIONS: ACCIDENTAL FALL TECHNIQUE: 3 views of the shoulder were acquired. COMPARISON: None. FINDINGS: Bones: No fractures or dislocations. Moderate acromioclavicular joint space narrowing and juxta-art icular osteophytosis. Mild glenohumeral joint space narrowing. No suspicious bony lesions. Visualize d ribs appear intact. Diffuse osseous demineralization. Soft tissues: No suspicious soft tissue calcifications. The visualized lungs are within normal limi ts. IMPRESSION: 1.No acute bony abnormality. 2.Mild glenohumeral and moderate acromioclavicular joint osteoarthritis. Reviewed by: Tasha Saldaña MD on 04/26/2023 3:17 PM PST Approved by: Tasha Saldaña MD on 04/26/2023 3:17 PM PST Station ID: [id number]
--- NOTE | 2023-04-26 19:34 | CT Report ---
PROCEDURE: Head WO INDICATIONS: ACCIDENTAL FALL TECHNIQUE: Noncontrast 4.5 mm thick angled axial sections acquired from the foramen magnum to the vertex. For r adiation dose reduction, the following was used: automated exposure control, adjustment of mA and/or kV according to patient size. COMPARISON: None. FINDINGS: Image quality: Excellent. CSF spaces: Basal cisterns are patent. No extra-axial fluid collections. Ventricles are normal in size and shape. Brain: No midline shift. No intracranial masses or hemorrhage. Ibarra-white matter interface is norm al. Skull and face: Calvarium and visualized facial bones are intact, without suspicious lesions. Hyper ostosis frontalis is incidentally noted, which is not frankly abnormal for a female patient of this a ge. Sinuses: Visualized sinuses and mastoids are clear. IMPRESSION: Noncontrast head CT within normal limits for age. Reviewed by: Clark Figueroa MD on 04/26/2023 6:32 PM [facility] Approved by: Clark Figueroa MD on 04/26/2023 6:32 PM [facility] Station ID: [id number]
== END 2023-04-26 13:23 | disposition home or self-care (01) ==
LOC: DI 13:22
PROVIDERS: ATTEND Registered Nurse
DX: M19.011 Primary osteoarthritis, right shoulder (principal); Z96.651 Presence of right artificial knee joint; Z91.81 History of falling

== ENCOUNTER 2023-04-26 13:25 | Outpatient (CLI) | payer MEDICARE ==
--- NOTE | 2023-04-26 15:49 | XRAY Report ---
PROCEDURE: Ribs w/PA Chest 3+V RT INDICATIONS: ACCIDENTAL FALL TECHNIQUE: 2 views of the ribs were acquired, along with a single view chest. COMPARISON: X-ray chest 10/31/2019. FINDINGS: Surgical changes and devices: None. Bones and chest wall: Osteopenia. Scoliosis. Questionable minimally displaced fracture of the lower thoracic rib; evaluation limited due to osteopenia and overlying soft tissues.. Old left humeral neck fracture noted. Lungs and pleura: No pleural effusions or pneumothorax. Lungs appear clear. Mediastinum: Mediastinal contours appear normal. Heart size is normal. IMPRESSION: Questionable nondisplaced fracture of the lateral rib in the region where the marker is placed. Evalu ation is limited due to severe osteopenia overlying soft tissues. Reviewed by: Marcos Mohr MD on 04/26/2023 3:48 PM PST Approved by: Marcos Mohr MD on 04/26/2023 3:48 PM PST Station ID: [id number]
== END 2023-04-26 13:26 | disposition home or self-care (01) ==
LOC: DI 13:25
PROVIDERS: ATTEND Registered Nurse
DX: R93.7 Abnormal findings on diagnostic imaging of other parts of musculoskeletal system (principal); M85.88 Other specified disorders of bone density and structure, other site; M19.011 Primary osteoarthritis, right shoulder; Z96.651 Presence of right artificial knee joint; Z91.81 History of falling

== ENCOUNTER 2023-05-14 15:15 | Outpatient (CLI) | payer MEDICARE | END 2023-05-14 23:59 | disposition short-term general hospital (02) | LOC: EMS 15:15 | DX: R07.89 Other chest pain (principal); M54.6 Pain in thoracic spine; R00.1 Bradycardia, unspecified | CPT/HCPCS: A0425; A0427 ==

== ENCOUNTER 2023-08-24 14:52 | Outpatient (CLI) | payer MEDICARE ==
--- NOTE | 2023-08-25 14:56 | Ultrasound Report ---
PROCEDURE: Arterial Duplex Lwr Ext BL INDICATIONS: BILATERAL PVD TECHNIQUE: Color and pulse Doppler interrogation was performed of both lower extremity arterial systems, with im age documentation. COMPARISON: None FINDINGS: Right lower extremity: Common femoral artery: 79 cm/sec, with biphasic flow. Deep femoral artery: 45 cm/sec, with biphasic flow. Proximal superficial femoral artery: 65 cm/sec, with biphasic flow. Mid superficial femoral artery: 68 cm/sec, with biphasic flow. Distal superficial femoral artery: 60 cm/sec, with biphasic flow. Popliteal artery: 43 cm/sec, with biphasic flow. Posterior tibial artery: 33 cm/sec, with biphasic flow. Anterior tibial artery/dorsalis pedis: 25 cm/sec, with biphasic flow. Ibarra-scale imaging description: Mild atheromatous calcifications. No focal hemodynamically significa nt stenosis. Left lower extremity: Common femoral artery: 114 cm/sec, with biphasic flow. Deep femoral artery: 45 cm/sec, with biphasic flow. Proximal superficial femoral artery: 123 cm/sec, with biphasic flow. Mid superficial femoral artery: 58 cm/sec, with biphasic flow. Distal superficial femoral artery: 65 cm/sec, with biphasic flow. Popliteal artery: 46 cm/sec, with biphasic flow. Posterior tibial artery: 21 cm/sec, with biphasic flow. Anterior tibial artery/dorsalis pedis: 79 cm/sec, with biphasic flow. Ibarra-scale imaging description: Scattered atheromatous plaque throughout. No focal hemodynamically s ignificant stenosis. IMPRESSION: Patent lower extremity vasculature without hemodynamically significant stenosis. Reviewed by: Ivy Ayala MD on 08/25/2023 2:55 PM PDT Approved by: Ivy Ayala MD on 08/25/2023 2:55 PM PDT Station ID: [id number]
== END 2023-08-24 14:53 | disposition home or self-care (01) ==
LOC: DI 14:52
PROVIDERS: ATTEND Podiatrist
DX: I73.89 Other specified peripheral vascular diseases (principal)
CPT/HCPCS: 93925